=== PATIENT | male | born 1950 | race Caucasian/White ===

== ENCOUNTER 2018-12-28 05:30 | Inpatient (IN) ==
[2018-12-20 12:00] LABS: Basophils % 0.5 % (0.0-0.8); Eosinophils # 0.3 10*3/uL (0.0-0.87); Eosinophils % 4.1 % (0.00-10.9); Hematocrit 44.6 VOL% (42.0-52.0); Hemoglobin 15.2 GM/DL (14.0-18.0); Immature Granulocytes % 0.2 %; Immature Granulocytes Absolute 0.01 #; Lymphocytes # 1.9 10*3/uL (1.4-4.0); Lymphocytes % 30.2 % (21.2-54.2); Mean Corpuscular HGB Conc 34.1 GM/DL (32-36); Mean Corpuscular Hemoglobin 31 PG (27-34); Mean Corpuscular Volume 89.7 FL (87-102); Mean Platelet Volume 10.2 FL (9.6-12.0); Monocytes % 15.4 % (1.7-12.7); Neutrophils # 3.1 10*3/uL (1.4-7.4); Neutrophils % 49.6 % (38.7-73.9); Platelet Count 207 T/CUMM (130-400); Red Blood Count 4.97 MC/CUMM (3.8-5.5); Red Cell Distribution Width 12.3 % (9.3-17.3); White Blood Count 6.3 T/CUMM (4-12)
[2018-12-20 12:11] LABS: PT Patient Result 10.6 SECS; Partial Thromboplastin Time 28.4 SECS (0-40)
[2018-12-20 12:21] LABS: Albumin 3.8 G/DL (3.4-5.0); Bilirubin,Total 0.8 MG/DL (0.2-1.0); Calcium 9.4 MG/DL (8.5-10.1); Osmolality,Calculated 271.1 MOS/KG (273-304); Potassium 3.8 MMOL/L (3.5-5.1); Total Protein 7.9 G/DL (6.4-8.3)
[2018-12-20 12:34] LABS: Apearance,Urine CLEAR (Clear); Bilirubin,Urine Negative (Negative); Blood, Urine Negative (Negative); Glucose,Urine (UA) Negative (Negative); Ketones,Urine Negative (Negative); Nitrite,Urine Negative (Negative); Protein,Urine Negative; Urine Color Yellow (Yellow); Urine Specific Gravity 1.013 (1.001-1.035); Urine Urobilinogen < 2.0 EU/DL (0.2-1.0)
[2018-12-28] MEDS ORDERED: VANCOMYCIN 1,000 MG VIAL ONE (05:53)
[2018-12-28] MEDS ORDERED: FAMOTIDINE 20 MG TABLET ONE (05:53)
[2018-12-28] MEDS ORDERED: FAMOTIDINE 20 MG TABLET PO ONE (06:00)
[2018-12-28] MEDS ORDERED: ceFAZolin 2,000 MG in PREMIX 1 EACH IV ONE (06:00)
[2018-12-28] MEDS ORDERED: VANCOMYCIN INJ 1,000 MG in SODIUM CHLORIDE 0.9% 250 ML IV ONE (06:00)
[2018-12-28] MEDS: LACTATED RINGERS 1,000 ML IV SCH ×4 (06:25→15:59)
[2018-12-28] MEDS ORDERED: BACLOFEN 10 MG TABLET PO PRN (07:45)
[2018-12-28] MEDS ORDERED: ONDANSETRON 4 MG/2 ML VIAL IV PRN ×2 (07:46→12:55)
[2018-12-28] MEDS ORDERED: ZALEPLON 5 MG CAPSULE PO PRN (07:46)
[2018-12-28] MEDS ORDERED: MORPHINE 4 MG/1 ML VIAL IV PRN ×2 (07:46)
[2018-12-28] MEDS ORDERED: oxyCODONE IR 5 MG TABLET PO PRN ×2 (07:46)
[2018-12-28] MEDS ORDERED: diphenhydrAMINE CAP 25 MG CAPSULE PO PRN (07:46)
[2018-12-28] MEDS ORDERED: MAGNESIUM HYDROXIDE SUSP 30 ML UDCUP PO PRN (07:46)
[2018-12-28] MEDS ORDERED: BACITRACIN OINT 0.9 GM PACK TOP ONE (09:01)
[2018-12-28] MEDS ORDERED: ROPIVACAINE 0.5% 30 ML VIAL ONE (09:29)
[2018-12-28 09:36] LABS: Apearance,Urine CLEAR (Clear); Bilirubin,Urine Negative (Negative); Blood, Urine Negative (Negative); Glucose,Urine (UA) Negative (Negative); Ketones,Urine Negative (Negative); Nitrite,Urine Negative (Negative); Protein,Urine Negative; RBC,Urine 1 /HPF (0-4); Squamous Epithelial Cell,Urine Occasional /HPF (0-10); Urine Color Yellow (Yellow); Urine Specific Gravity 1.011 (1.001-1.035); Urine Urobilinogen < 2.0 EU/DL (0.2-1.0); WBC,Urine <1 /HPF (0-6)
[2018-12-28] MEDS ORDERED: PROPOFOL 200 MG/20 ML VIAL IV ONE (09:56)
[2018-12-28] MEDS ORDERED: MIDAZOLAM 2 MG/2 ML VIAL ONE (09:57)
[2018-12-28] MEDS ORDERED: BUPIVACAINE SPINAL 0.75% 2 ML AMP SPINAL ONE (09:57)
[2018-12-28] MEDS ORDERED: KETAMINE 500 MG/10 ML VIAL ONE (09:57)
[2018-12-28] MEDS ORDERED: fentaNYL 100 MCG/2 ML VIAL ONE (09:57)
[2018-12-28] MEDS ORDERED: TRANEXAMIC ACID 1,000 MG/10 ML VIAL ONE (09:57)
[2018-12-28] MEDS ORDERED: SODIUM CHLORIDE 0.9% 250 ML IV ONE (09:58)
[2018-12-28] MEDS: KETOROLAC 30 MG/1 ML VIAL IV SCH ×3 (09:58→20:07)
[2018-12-28] MEDS ORDERED: PHENYLEPHRINE 1 MG/10 ML SYRINGE IV ONE (09:58)
[2018-12-28] MEDS ORDERED: ACETAMINOPHEN 1,000 MG/100 ML VIAL IV ONE (09:58)
[2018-12-28] MEDS ORDERED: SODIUM CHLORIDE 0.9% 100 ML IV ONE (09:58)
[2018-12-28] MEDS ORDERED: ceFAZolin 2,000 MG in PREMIX 1 EACH IV SCH (11:46)
[2018-12-28] MEDS ORDERED: HYDROmorphone 2 MG/1 ML VIAL ONE (12:47)
[2018-12-28] MEDS ORDERED: ONDANSETRON 4 MG/2 ML VIAL ONE (12:47)
[2018-12-28] MEDS ORDERED: HYDROmorphone 2 MG/1 ML VIAL IV PRN ×2 (12:55→17:12)
[2018-12-28] MEDS: DOCUSATE SODIUM 100 MG CAPSULE PO SCH ×2 (15:33→20:08)
[2018-12-28] MEDS: VALSARTAN/HCTZ 160-12.5 MG TABLET PO SCH (15:33)
[2018-12-28] MEDS: ACETAMINOPHEN 500 MG TABLET PO SCH ×2 (15:34→18:09)
[2018-12-28] MEDS: ceFAZolin 2,000 MG in PREMIX 1 EACH IV SCH (15:59)
[2018-12-28 18:10] LABS: Basophils % 0.1 % (0.0-0.8); Eosinophils % 0.4 % (0.00-10.9); Hematocrit 33.3 VOL% (42.0-52.0); Hemoglobin 11.3 GM/DL (14.0-18.0); Immature Granulocytes % 0.6 %; Immature Granulocytes Absolute 0.04 #; Lymphocytes # 0.8 10*3/uL (1.4-4.0); Lymphocytes % 11.6 % (21.2-54.2); Mean Corpuscular HGB Conc 33.9 GM/DL (32-36); Mean Corpuscular Hemoglobin 31 PG (27-34); Mean Corpuscular Volume 90.5 FL (87-102); Mean Platelet Volume 10.4 FL (9.6-12.0); Monocytes # 0.8 10*3/uL (0.11-0.8); Monocytes % 12.3 % (1.7-12.7); Neutrophils # 5.1 10*3/uL (1.4-7.4); Platelet Count 139 T/CUMM (130-400); Red Blood Count 3.68 MC/CUMM (3.8-5.5); Red Cell Distribution Width 12.1 % (9.3-17.3); White Blood Count 6.8 T/CUMM (4-12)
[2018-12-28 18:26] LABS: Calcium 8.1 MG/DL (8.5-10.1); Osmolality,Calculated 274.8 MOS/KG (273-304); Potassium 3.7 MMOL/L (3.5-5.1)
[2018-12-28] MEDS: SIMVASTATIN 40 MG TABLET PO SCH (20:08)
[2018-12-28] MEDS: HYDROmorphone 2 MG/1 ML VIAL IV PRN (21:09)
[2018-12-29] MEDS: ACETAMINOPHEN 500 MG TABLET PO SCH ×2 (00:23→06:16)
[2018-12-29] MEDS: LACTATED RINGERS 1,000 ML IV SCH (00:26)
[2018-12-29] MEDS: ceFAZolin 2,000 MG in PREMIX 1 EACH IV SCH (00:33)
[2018-12-29] MEDS: FONDAPARINUX 2.5 MG/0.5 ML SYRINGE SUBCUT SCH (02:13)
[2018-12-29] MEDS: KETOROLAC 30 MG/1 ML VIAL IV SCH (02:13)
[2018-12-29 04:19] LABS: Basophils % 0.4 % (0.0-0.8); Eosinophils # 0.1 10*3/uL (0.0-0.87); Eosinophils % 1.4 % (0.00-10.9); Hematocrit 30.1 VOL% (42.0-52.0); Hemoglobin 10.2 GM/DL (14.0-18.0); Immature Granulocytes % 0.4 %; Immature Granulocytes Absolute 0.02 #; Lymphocytes # 1.1 10*3/uL (1.4-4.0); Lymphocytes % 22.1 % (21.2-54.2); Mean Corpuscular HGB Conc 33.9 GM/DL (32-36); Mean Corpuscular Hemoglobin 31 PG (27-34); Mean Corpuscular Volume 90.1 FL (87-102); Mean Platelet Volume 10.5 FL (9.6-12.0); Monocytes # 0.8 10*3/uL (0.11-0.8); Monocytes % 15.5 % (1.7-12.7); Neutrophils % 60.2 % (38.7-73.9); Platelet Count 132 T/CUMM (130-400); Red Blood Count 3.34 MC/CUMM (3.8-5.5); Red Cell Distribution Width 12.1 % (9.3-17.3)
[2018-12-29 04:35] LABS: Potassium 3.7 MMOL/L (3.5-5.1)
[2018-12-29] MEDS: LEVOTHYROXINE 175 MCG TABLET PO SCH (06:15)
[2018-12-29] MEDS: DOCUSATE SODIUM 100 MG CAPSULE PO SCH ×2 (08:47→20:41)
[2018-12-29] MEDS: VALSARTAN/HCTZ 160-12.5 MG TABLET PO SCH (08:47)
[2018-12-29] MEDS: CELECOXIB 200 MG CAPSULE PO SCH (13:52)
[2018-12-29] MEDS: HYDROmorphone 2 MG/1 ML VIAL IV PRN (14:43)
[2018-12-29] MEDS: SIMVASTATIN 40 MG TABLET PO SCH (20:40)
[2018-12-30] MEDS: FONDAPARINUX 2.5 MG/0.5 ML SYRINGE SUBCUT SCH (01:18)
[2018-12-30 05:46] LABS: Basophils % 0.3 % (0.0-0.8); Eosinophils # 0.1 10*3/uL (0.0-0.87); Eosinophils % 2.3 % (0.00-10.9); Hematocrit 28.6 VOL% (42.0-52.0); Hemoglobin 9.8 GM/DL (14.0-18.0); Immature Granulocytes % 0.3 %; Immature Granulocytes Absolute 0.02 #; Lymphocytes # 0.9 10*3/uL (1.4-4.0); Lymphocytes % 16.1 % (21.2-54.2); Mean Corpuscular HGB Conc 34.3 GM/DL (32-36); Mean Corpuscular Hemoglobin 31 PG (27-34); Mean Corpuscular Volume 91.4 FL (87-102); Mean Platelet Volume 10.7 FL (9.6-12.0); Monocytes % 16.5 % (1.7-12.7); Neutrophils # 3.7 10*3/uL (1.4-7.4); Neutrophils % 64.5 % (38.7-73.9); Platelet Count 131 T/CUMM (130-400); Red Blood Count 3.13 MC/CUMM (3.8-5.5); Red Cell Distribution Width 12.5 % (9.3-17.3); White Blood Count 5.8 T/CUMM (4-12)
[2018-12-30 06:36] LABS: Band Neutrophils 4 % (0-10); Eosinophils 3 % (0-10); Hypochromasia 2+; Lymphocytes 17 % (20-55); Platelet Estimate Decreased; Segmented Neutrophils 60 % (50-85); Total Cells Counted 100
[2018-12-30] MEDS: LEVOTHYROXINE 175 MCG TABLET PO SCH (07:06)
[2018-12-30 07:45] VITALS: BP 123/69
[2018-12-30] MEDS: DOCUSATE SODIUM 100 MG CAPSULE PO SCH (08:56)
[2018-12-30] MEDS: CELECOXIB 200 MG CAPSULE PO SCH (08:56)
[2018-12-30] MEDS: VALSARTAN/HCTZ 160-12.5 MG TABLET PO SCH (08:56)
== END 2018-12-30 10:55 | disposition home health service (06) | DRG 470 ==
LOC: N.SDSINP 05:30 → N.3E 13:41 → N.ICU 15:51 → N.3E 12-29 15:23
PROVIDERS: ADMIT Orthopaedic Surgery; ATTEND Orthopaedic Surgery